=== PATIENT | male | born 1995 | race Caucasian/White ===

== ENCOUNTER 2021-11-25 15:03 | Emergency (ER) | payer OTHER, SELFPAY ==
--- NOTE | ~2021-11-25 | XR_ITS ---
EXAM: XR ankle LT min 3V DATE: 11/25/2021 15:40 HISTORY: Missed 2 steps 11/24/21. Rolled/lateral pain since. . COMPARISON: None available. FINDINGS: Normal mineralization. No fracture or dislocation. No lytic or blastic lesion. Joint space s are maintained. No erosion or periosteal change. Soft tissues within normal limits. IMPRESSION: No acute osseous finding in the left ankle. Reviewed, dictated and finalized at location K.
[2021-11-25 15:14] VITALS: BP 124/76; PULSE 74; RESP 14; TEMP 36.6; O2SAT 100
--- NOTE | 2021-11-25 15:14 | ED.GENADULT ---
HPI - General Adult General Chief complaint: Extremity Injury, Lower Stated complaint: Left Ankle Injury Time Seen by Provider: 11/25/21 15:14 Source: patient Mode of arrival: ambulatory Limitations: no limitations History of Present Illness HPI narrative: 26-year-old male patient presents to the [facility] with complaints of left ankle pain. Patient states yesterday he was at work and was taking out some garbage and rolled his left ankle. Patient states he put some ice on it yesterday and tried to elevate it and this morning he noticed that the swelling was worse and was having difficulty walking on the left foot. Denies any numbness or tingling to the foot that he is aware of. Related Data Home Medications Medication Instructions Recorded Confirmed No Home Medications 11/25/21 11/25/21 Allergies Allergy/AdvReac Type Severity Reaction Status Date / Time No Known Allergies Allergy Verified 11/25/21 15:41 Review of Systems Review of Systems: CONSTITUTIONAL: Denies fever, chills, or sweats. EYES: Denies visual changes, redness, or discharge. ENT: Denies rhinorrhea, congestion, sore throat, or otalgia. CARDIOVASCULAR: Denies chest pain, palpitations, or edema. RESPIRATORY: Denies cough or dyspnea. GASTROINTESTINAL: Denies abdominal pain, nausea, vomiting, or diarrhea. GENITOURINARY: Denies dysuria or hematuria. SKIN: Denies rash or itching. MUSCULOSKELETAL: Denies back pain, joint pain, or myalgia. Positive left ankle pain NEUROLOGIC: Denies headache, numbness, or weakness. PSYCHIATRIC: Denies anxiety or depression. PMFSH Comments At the time of my signature I agree with nursing past medical history, surgical, social, and family history. There is no relevant family history pertinent to the presenting complaint. Exam Narrative: GENERAL: Well-appearing, well-nourished, and in no acute distress. HEAD: Normocephalic, atraumatic. EYES: PERRLA and EOMI. ENT: Nares clear, no rhinorrhea or epistaxis. Mucous membranes moist. NECK: Supple. No lymphadenopathy CHEST: Clear to auscultation. No respiratory distress. HEART: Regular rate and rhythm. No murmur heard. Normal peripheral pulses. ABDOMEN: Soft, nontender, nondistended, normal active bowel sounds. EXTREMITIES: Patient is unable to bear weight and ambulate with pain. The L ankle is with obvious asymmetry or deformity when compared to the R ankle. Patient can flex/extend, invert/nora. No obvious surface trauma, there is ecchymosis and significant soft tissue swelling noted to the lateral side of the left ankle/foot. tenderness to palpation over the lateral malleolus. Anterior talofibular ligament, pain over the posterior talofibular ligament, no pain over the calcaneofibular ligament nontender and without swelling. No tenderness or deformity of the midfoot or over the proximal fifth metatarsal. Good DP and posterior tibial pulses and sensation to light touch normal. Talar tilt test is negative for ligament laxity to valgus or vargus stress. Negative anterior draw. Peroneal nerve is intact with strong eversion and plantar flexion. SKIN: Warm, dry, no rash. NEURO: No focal deficits. Alert and oriented x3. Course Course Level of Care: Express Care Visit Vital Signs Vital signs: Vital Signs Temperature 36.6 C 11/25/21 15:14 Pulse Rate 74 11/25/21 15:14 Respiratory Rate 14 11/25/21 15:14 Blood Pressure 124/76 11/25/21 15:14 Pulse Oximetry 100 11/25/21 15:14 Oxygen Delivery Room Air 11/25/21 15:14 Temperature 36.6 C 11/25/21 15:42 Pulse Rate 74 11/25/21 15:42 Respiratory Rate 14 11/25/21 15:42 Blood Pressure 124/76 11/25/21 15:42 Pulse Oximetry 100 11/25/21 15:42 Oxygen Delivery Room Air 11/25/21 15:42 Vital signs reviewed Medical Decision Making MDM Narrative Medical decision making narrative: Discussed with patient that x-ray does not show any obvious fractures however it does appear that he has a pretty significant an
[2021-11-25 15:42] VITALS: BP 124/76; PULSE 74; RESP 14; TEMP 36.6; O2SAT 100
== END 2021-11-25 16:55 | disposition home or self-care (01) ==
PROVIDERS: Emergency Provider Nurse Practitioner Family
DX: S93.402A Sprain of unspecified ligament of left ankle, initial encounter (principal); S96.912A Strain of unspecified muscle and tendon at ankle and foot level, left foot, initial encounter; X50.9XXA Other and unspecified overexertion or strenuous movements or postures, initial encounter
CPT/HCPCS: 73610; 99213; G0463